=== PATIENT | female | born 1935 | race Caucasian/White ===

== ENCOUNTER 2018-01-13 11:21 | Emergency (ER) | payer MEDICARE, SELFPAY ==
[2018-01-13 11:21] VITALS: BP 157/80; PULSE 71; RESP 18; TEMP 36.4; O2SAT 96
--- NOTE | 2018-01-13 11:40 | CT_ITS ---
STUDY: CT ABDOMEN AND PELVIS WITHOUT CONTRAST REASON FOR EXAM: Female, 82 years old. Lower abdominal pain, history of cholecystectomy RADIATION DOSAGE (If Supplied By Facility): CTDIvol = ( 11.42 ) mGy, DLP = ( 590.81 ) mGycm TECHNIQUE: Transaxial images were obtained from the dome of the diaphragm to the symphysis pubis without oral contrast, and without intravenous contrast. Sagittal and coronal images were reconstructed. Individualized dose optimization techniques were used for this CT. COMPARISON: 2016 FINDINGS: There are chronic interstitial fibrotic changes of the lung bases. The visualized portions of the heart are within normal limits. Normal liver. There are surgical clips in the gallbladder fossa consistent with a prior cholecystectomy. Normal spleen. Normal pancreas. Normal bilateral adrenal glands. Normal right kidney. Normal left kidney. Normal visualized stomach. Normal small intestine. There are multiple colonic diverticula consistent with diverticulosis. There is subtle nonspecific submucosal thickening in the distal descending and sigmoid colon with perisigmoidal inflammatory stranding suggesting acute diverticulitis. An underlying lesion the sigmoid cannot be excluded and further evaluation with colonoscopy is recommended once the acute inflammation has resolved unless recently performed. Appendix best seen on coronal recon image 53 Normal abdominal aorta. Normal inferior vena cava. Normal retroperitoneum. Normal urinary bladder. There is a left-sided inguinal hernia containing adipose tissue. There are diffuse degenerative changes of the visualized lumbar spine, and pelvis. CT/Abdomen/Pelvis without Cont IMPRESSION: Scattered clonic diverticulosis. There is thickening of the distal descending and sigmoid colon with perisigmoidal inflammatory stranding suggesting acute diverticulitis. No perforation or abscess. However an underlying lesion cannot be excluded. No suspicious solid organ abnormality, previous cholecystectomy Prominent fat-containing left inguinal hernia Degenerative bony changes Electronically Signed: Carmelo Boswell MD at 13:06 EDT , Service support ,
--- NOTE | 2018-01-13 11:40 | RAD_ITS ---
STUDY: X-RAY CHEST REASON FOR EXAM: Female, 82 years old. Right-sided chest pain since last night TECHNIQUE: Single AP portable view of the chest. COMPARISON: 09/10/2015 FINDINGS: There are interstitial fibrotic changes of the lungs. There is no demonstrated pleural abnormality. Normal size heart. Normal mediastinum and caty. Normal visualized pulmonary arteries. Normal visualized aortic arch and descending thoracic aorta. Normal visualized thoracic spine. Normal visualized ribs, clavicles, and shoulders. There is no demonstrated abnormality of the visualized soft tissue structures of the upper abdomen. RAD/Chest 1 View (Portable) IMPRESSION: Chronic interstitial changes, no superimposed acute pulmonary process Electronically Signed: Carmelo Boswell MD at 12:16 EDT , Service support ,
[2018-01-13] MEDS: Ondansetron 4 MG/2 ML Vial IV ×2 (12:12→13:37)
[2018-01-13] MEDS: 0.9% Normal Saline 1,000 ML 125 ML IV (12:12)
[2018-01-13 12:19] LABS: Absolute Lymphocyte Count 0.84 X10^3/ul (0.83-4.51); Absolute Neutrophil Count 11.2 X10^3/uL (2.0-7.7); Basophil# 0.01 X10^3/uL; Basophil% 0.1 % (0-1); Hematocrit 39.8 % (37-47); Hemoglobin 13.1 g/dl (12.0-15.0); Lymphocyte # 0.84 X10^3/ul (4.0); Lymphocyte % 6.5 % (19-41); Mean Corp Hgb Conc 32.9 g/gl (32-36); Mean Corpuscular Hgb 31.3 pg (27.0-32.0); Mean Corpuscular Volume 95.2 fL (81-99); Mean Platelet Vol. 9.8 fl (6.2-12.0); Monocyte# 0.95 X10^3/uL; Monocyte% 7.3 % (0-10); Neutrophil # 11.19 X10^3/uL (2.7-7.7); Platelet Count 238 K/mm3 (150-450); RBC Distribution Width SD 45.1 fl (35.1-43.9); Red Blood Count 4.18 M/mm3 (4.2-5.4)
[2018-01-13 12:20] LABS: POSITIVE COUNT NO; POSITIVE DIFFERENTIAL NO; POSITIVE MORPHOLOGY NO
--- NOTE | 2018-01-13 12:25 | ED.VISSUMM ---
- ER Visit Summary Date of Service: 01/13/18 Chief Complaint: Abdominal pain History of Present Illness: The patient is a [address] Lakhani. She reports that yesterday at bedtime she had the onset of lower abdominal pain that she describes as cramping. It was 9 out of 10 at worst. States it is now 1-2 out of 10 severity. It was worsened by nothing and relieved by nothing. She reports she has been very nauseated and had dry heaves. States that she had one loose stool and then 2 normal bowel movements there is been no blood in her stools. She does complain of subjective fever and chills. Patient reports that approximately 10 days ago she was working and the ground was wet. She questions whether or not she may have slipped. She has had pain in her right leg since that time. She had x-rays of her knee that were negative. However, she reports that since then she has been taking Advil and Tylenol. She states that she has been nauseated since that time. She also reports that she has had right lower chest pain since that time. States the pain only comes on when she lays down. There is no pain with exertion. She reports that the pain is 0 now, but 6 out of 10 when she lays down. She did not fall. Physical Examination: Vitals: Stable. Afebrile. General: Well-nourished and well-developed. Head: Normocephalic atraumatic. Neck: Supple, no lymphadenopathy. No JVD. Nontender. Cardiovascular: Regular rate and rhythm. 2 out of 6 systolic murmur. Respiratory: No respiratory distress. Clear to auscultation bilaterally. Chest is nontender. Abdominal: Soft, nontender, nondistended, normal bowel sounds. No guarding, rebound, or peritoneal signs. Back: Nontender. Extremities: Nontender, no edema. Skin: Normal color, no rash. Neurologic: Alert and oriented ?3. Cranial nerves II through XII are intact. Normal strength and sensation. Psych: Normal affect. Test Results: CBC is more for a white count of 13.0 with 86 segmented neutrophils and 7 lymphocytes. BMP is marked for glucose of 115 and BUN of 21. LFTs are normal. Lipase is normal. Chest x-ray shows chronic changes. Urinalysis is negative. Clinical Impression(s) from Imaging Studies Abdomen/Pelvis CT 01/13/18 11:40 IMPRESSION: Scattered clonic diverticulosis. There is thickening of the distal descending and sigmoid colon with perisigmoidal inflammatory stranding suggesting acute diverticulitis. No perforation or abscess. However an underlying lesion cannot be excluded. No suspicious solid organ abnormality, previous cholecystectomy Prominent fat-containing left inguinal hernia Degenerative bony changes Electronically Signed: Carmelo Boswell MD at 13:06 EDT , Service support , Emergency Department Course and Treatment: Patient had an IV placed. She was given Zofran IV and is resting comfortably. The patient was given a dose of Cipro and Flagyl IV. Treatment Plan: Discharge with Cipro, Flagyl, [place], and Colace. Instructed follow-up Dr. Lakhani in 5-7 days for another exam. She was also given the phone number for Dr. Allison to follow-up with after treatment of her diverticulitis that she is never had a colonoscopy. Return to the emergency department for any worsening symptoms. Disposition: To home in improved and stable condition. Impression: 1. Diverticulitis. This note was generated with i[employer] dictation software. It may contain incorrect words, spelling, and punctuation that were not noted in review of the chart prior to signing ED Disposition - Plan for ED Patient: Chief Complaint: Weakness Instructions: ED Diverticulitis Prescriptions: Oxycodone HCl/Acetaminophen [Percocet 5/325] 1 tablet PO Q6H PRN PRN 3 Days #12 tablet PRN Reason: Pain Docusate Sodium [Colace] 100 mg PO DAILY #20 capsule Ciprofloxacin [Cipro] 500 mg PO BID #20 tablet Metronidazole [Flagyl] 500 mg PO Q6H #40 tablet Referrals: Phu Lakhani DO [Primary Care Provider] - 5-7 Days Maldonado Fish MD [STAFF PHYSICIAN] -
[2018-01-13 12:27] LABS: AST(SGOT) 19 U/L (15-37); Alanine Aminotransfer ALT/SGPT 20 U/L (13-56); Albumin, Serum 3.5 g/dL (3.2-5.0); Alkaline Phosphatase 86 U/L (45-117); Anion Gap 8 (5-15); BUN 21 mg/dL (7-18); Bilirubin, Direct 0.17 mg/dL (0.00-0.30); Chloride 102 mmol/L (98-107); EST Glomerular Filtration Rate 56 mL/min (>60); Est Glom Filt Rate - Afr Amer 68 mL/min (>60); Estimated Creatinine Clearance 66.76 ml/min; Globulin 3.9 g/dL (2.2-4.2); Glucose 115 mg/dL (74-106); Lipase 175 U/L (73-393); Potassium 4.2 mmol/L (3.5-5.1); Protein, Total 7.4 g/dL (6.4-8.2); Sodium Level 137 mmol/L (136-145)
[2018-01-13 13:47] LABS: Bacteria 0 SEEN /hpf (None Seen); Mucous, Urine 0 SEEN /hpf (<or=2+); Red Blood Cells-Urine 0 SEEN /hpf (0-5); White Blood Cells 0 SEEN /hpf (0-5)
[2018-01-13 13:57] LABS: Color, Urine Yellow (Yellow); Glucose, Dipstick Normal (Normal); Ketone-Dipstick 5 mg/dl (Negative); Leukocyte Esterase-Dipstick Negative /ul (Negative); Nitrite-Dipstick Negative (Negative); Occult Blood-Urine 10 /ul (Negative); Protein-Dipstick Negative (Negative); Urine Bilirubin Dipstick Negative (Negative); Urine Clarity Clear (Clear); Urine Urobilinogen Normal (Normal)
[2018-01-13 14:03] LABS: Squamous Epithelial Cells - UA 0-5 SEEN /hpf (5-10)
[2018-01-13] MEDS: Ciprofloxacin 400 MG/200 ML BAG 200 MG IV (14:12)
[2018-01-13] MEDS: Morphine 4 MG/ML Syringe IV (14:12)
[2018-01-13 14:15] VITALS: BP 141/66; PULSE 63; RESP 14; O2SAT 98
[2018-01-13 16:12] VITALS: BP 150/86; PULSE 58; RESP 16; O2SAT 95
[2018-01-13 17:33] VITALS: BP 119/72; PULSE 66; RESP 14; O2SAT 96
== END 2018-01-13 17:34 | disposition home or self-care (01) ==
PROVIDERS: Emergency Provider Emergency Medicine; Family Provider Student in an Organized Health Care Education/Training Program; PCP Student in an Organized Health Care Education/Training Program
DX: K57.32 Diverticulitis of large intestine without perforation or abscess without bleeding (principal); I10 Essential (primary) hypertension; Z79.82 Long term (current) use of aspirin; Z79.899 Other long term (current) drug therapy
CPT/HCPCS: 71045; 74176; 80048; 80076; 81001; 83690; 85025; 96365; 96367; 96375; 96376; 99284; J7030; A4216; J0744; J2405

== ENCOUNTER 2018-01-25 09:01 | Emergency (ER) | payer MEDICARE, SELFPAY ==
[2018-01-25 09:04] VITALS: BP 166/83; PULSE 74; RESP 17; TEMP 37.1; O2SAT 94; BMI 28.2
--- NOTE | 2018-01-25 09:22 | VDLE_ITS ---
Reason For Study: pain RIGHT LEFT GSV is normal. CFV is compressible, spontaneous, phasic, CFV is compressible, spontaneous, phasic, competent, and demonstrates normal competent and demonstrates normal augmentation. augmentation. FV is compressible, spontaneous, phasic, competent and demonstrates normal augmentation. POP V is compressible, spontaneous, phasic, competent and demonstrates normal augmentation. T/P Trunk is compressible. PTV is compressible. RT PerV is compressible. Procedure Exam performed portable in ED. The exam was diagnostic. A preliminary report was called and/or faxed to Dr. San. Interpretation Summary There is no evidence of right lower extremity deep vein thrombosis. Right greater saphenous vein appears patent and compressible segmentally. Normal flow patterns left common femoral vein. Ordering Physician: Stephanie Payne Performed By: William Patterson RVT
[2018-01-25] MEDS: Morphine 4 MG/ML Syringe IM (09:39)
[2018-01-25] MEDS: proMETHazine 25 MG/ML Syringe 12.5 MG IM (09:39)
--- NOTE | 2018-01-25 10:30 | ED.DCSUM_ITS ---
- ER Visit Summary Date of Service: 01/25/18 Chief Complaint: [Right knee pain] History of Present Illness: The patient is a 82 F [presents the emergency department complaint of right knee pain ?2-3 weeks. Patient states that she had an episode at work 2-3 weeks ago where she picked up at tray full of glasses of water which then spilled causing her to twist her right knee. Patient had pain immediately and continues to have pain since that time. 3 days after the injury patient was seen at urgent care and had x-rays of her right knee that did not show any fracture but just some arthritic changes. Patient has been bearing weight and has gone to a couple of days of work since the injury. Patient has an appointment with orthopedics next week. The pain is become more severe over the last couple of days and she feels like the entire leg is more swollen. Patient's daughter states that patient's been less active and been sitting around more due to the pain in the right knee. Patient denies any chest pain or shortness of breath.] Patient states that she does not want to file workman's comp. Physical Examination: [HEENT-PERRLA, EOMI. Cranial nerves II through XII grossly intact. TMs clear. Mucous membranes moist. No adenopathy. Cardiovascular-regular rate and rhythm without murmur or ectopy Lungs-clear to auscultation, chest wall stable without crepitus or subcu emphysema Abdomen-normoactive bowel sounds, soft, nontender, no rebound or rigidity, no peritoneal signs. Extremities-intact ?4, normal range of motion, normal pulses, atraumatic]. Right knee-patient has good range of motion flexion and extension. No significant effusion noted. Ligamentously stable on exam however she does have pain with varus and valgus stress of the knee without any significant laxity noted. She is neurovascular intact distally. No ropes or cords palpated. Test Results: [Venous duplex of the right lower extremity obtained was negative for DVT] Emergency Department Course and Treatment: [At this point I do not feel any further imaging is indicated. Patient was given a shot of morphine and Phenergan in the emergency department. Patient had good pain control.] Treatment Plan: [Patient will be given a prescription for Percocet and Phenergan and patient advised to follow-up with her orthopedic surgeon in 1 week.] I suspect patient may have internal derangement of the right knee and may require further imaging such as possibly MRI to evaluate further. Disposition: [Discharged home in stable condition.] Impression: [Right knee sprain-possible internal derangement.] This note was generated with [employer] dictation software. It may contain incorrect words, spelling, and punctuation that were not noted in review of the chart prior to signing ED Disposition - Plan for ED Patient: Chief Complaint: Lower Extremity Injury Referrals: Phu Lakhani DO [Primary Care Provider] -
--- NOTE | 2018-01-25 10:30 | ED.DEP ---
ED Disposition - Plan for ED Patient: Chief Complaint: Lower Extremity Injury Instructions: ED Meniscal Injury Knee Poss, ED Sprain Knee Prescriptions: Oxycodone HCl/Acetaminophen [Percocet 5/325] 1 tab PO Q6H PRN PRN 5 Days #20 tab PRN Reason: Pain proMETHazine tablet [Phenergan] 25 mg PO Q6H PRN PRN #10 tab PRN Reason: Nausea Referrals: Phu Lakhani DO [Primary Care Provider] - Diogenes Stokes MD [STAFF PHYSICIAN] - 1 Week
[2018-01-25 10:52] VITALS: BP 139/66; PULSE 64; RESP 18; O2SAT 96
== END 2018-01-25 11:06 | disposition home or self-care (01) ==
PROVIDERS: Emergency Provider Emergency Medicine; Family Provider Student in an Organized Health Care Education/Training Program; PCP Student in an Organized Health Care Education/Training Program
DX: S83.91XA Sprain of unspecified site of right knee, initial encounter (principal); X50.1XXA Overexertion from prolonged static or awkward postures, initial encounter; Y93.89 Activity, other specified; Y92.9 Unspecified place or not applicable; Y99.0 Civilian activity done for income or pay; M79.89 Other specified soft tissue disorders; I10 Essential (primary) hypertension; E78.00 Pure hypercholesterolemia, unspecified; Z79.82 Long term (current) use of aspirin; Z79.899 Other long term (current) drug therapy
CPT/HCPCS: 93971; 96372; 99282

== ENCOUNTER 2023-01-12 18:23 | Emergency (ER) | payer MEDICARE, SELFPAY ==
[2023-01-12 18:24] VITALS: BP 186/111; PULSE 95; RESP 14; TEMP 35.7; O2SAT 99; BMI 27.3
--- NOTE | 2023-01-12 18:55 | CT_ITS ---
STUDY: CT BRAIN WITHOUT CONTRAST REASON FOR EXAM: Female, 87 years old. Headache Individualized dose optimization techniques were used for this CT. TECHNIQUE: Transaxial CT imaging of the brain was performed without administration of intravenous contrast material. COMPARISON: 08.09.16 FINDINGS: There are calcifications around the carotid artery. These are noted in the cavernous carotid arteries. Normal calvarium. Normal soft tissues. There is mild cerebral atrophy with widening of the extra-axial spaces and ventricular dilatation. There are areas of decreased attenuation within the white matter tracts of the supratentorial brain, consistent with microvascular disease changes. Normal basal ganglia and thalami. Normal brainstem. There is mild cerebellar atrophy. There is no intracranial hemorrhage. There are no findings of an acute ischemic infarction. Degenerative changes of the mandibular condyles. ASPECTS Score for Acute Strokes: 10 CT/Brain/Head without Contrast IMPRESSION: There are no acute findings. Chronic involutional changes of the brain. Electronically Signed: Jaxon Webb MD at 20:07 EDT ,
[2023-01-12] MEDS: Ondansetron 4 MG/2 ML Vial IV (19:12)
[2023-01-12 19:15] LABS: Absolute Lymphocyte Count 2.81 X10^3/uL (0.83-4.51); Absolute Neutrophil Count 2.8 X10^3/uL (2.0-7.7); Basophil# 0.04 X10^3/uL; Basophil% 0.6 % (0-1); Eosinophil# 0.12 X10^3/uL; Eosinophils% 1.9 % (0-5); Hematocrit 39.8 % (37-47); Hemoglobin 13.3 g/dL (12.0-15.0); Lymphocyte # 2.81 X10^3/ul (0.83-4.51); Lymphocyte % 43.4 % (19-41); Mean Corp Hgb Conc 33.4 g/dL (32-36); Mean Corpuscular Hgb 32.2 pg (27.0-32.0); Mean Corpuscular Volume 96.4 fL (81-99); Mean Platelet Vol. 9.8 fl (6.2-12.0); Monocyte# 0.69 X10^3/uL; Monocyte% 10.6 % (0-10); NRBC Flagged by Analyzer 0 % (0-5); Neutrophil % 43.2 % (47-70); Platelet Count 245 K/mm3 (150-450); RBC Distribution Width CV 12.5 % (11.6-14.6); RBC Distribution Width SD 44.7 fl (35.1-43.9); Red Blood Count 4.13 M/mm3 (4.2-5.4); White Blood Count 6.5 K/mm3 (4.4-11.0)
--- NOTE | 2023-01-12 19:28 | RAD_ITS ---
STUDY: XR Chest 1 View 01/12/2023 7:30 PM REASON FOR EXAM: Female, 87 years old. Hypertension COMPARISON: 01.13.18 TECHNIQUE: XR Chest 1 View FINDINGS: There is no demonstrated pleural abnormality. Normal heart size. Normal mediastinum. Normal caty. Prominent appearing increased interstitial lung markings. Normal visualized pulmonary arteries. There is atherosclerotic calcification of the aortic arch with tortuosity. There are diffuse degenerative changes of the visualized thoracic spine. There is degenerative osteoarthritis of the bilateral shoulders. There is no demonstrated abnormality of the visualized soft tissue structures of the upper abdomen. RAD/Chest 1 View (Portable) IMPRESSION: There are no acute findings. Electronically Signed: Jaxon Webb MD at 19:45 EDT ,
[2023-01-12 19:35] LABS: Anion Gap 6 (5-15); BUN 19 mg/dL (7-18); BUN/Creat Ratio 16.7 RATIO (10-20); Calcium,Total 9.4 mg/dL (8.5-10.1); Chloride 100 mmol/L (98-107); Creatinine, Serum 1.14 mg/dL (0.55-1.02); EST Glomerular Filtration Rate 48 mL/min (>60); Est Glom Filt Rate - Afr Amer 58 mL/min (>60); Estimated Creatinine Clearance 32.55 ml/min; Glucose 110 mg/dL (74-106); Potassium 4.3 mmol/L (3.5-5.1); Sodium Level 131 mmol/L (136-145); Troponin-I HS 7 pg/mL (3.0-54.0)
--- NOTE | 2023-01-12 19:35 | EX.ED.DYSGE1 ---
HPI History of Present Illness Chief Complaint: Hypertension Informant: patient Onset/Context/Timing Onset: Today Context: Gradual Onset Timing: Continuous Quality: Dull Location: Frontal Worsened by: Nothing Relieved by: Nothing Narrative Narrative: Patient presents with elevated blood pressure that was noticed today. Patient states she had an appointment with her front office administrator today. Patient states her blood pressure was noted to be elevated at that time. Patient was instructed to go home and rest. Patient was instructed to repeat her blood pressure. Family states the blood pressure was still elevated at that time. Family states they called the after-hours nurse and was told to come to the emergency department. Patient admits to a headache. Patient states it is over the frontal area. Patient describes it as dull. Patient states nothing makes it better and nothing makes it worse. Patient admits to some nausea and dry heaves. Patient denies any fevers or chills. Patient denies any visual changes. [facility] Medical History Hypertension Neck fracture Home Medications lorazepam 0.5 mg tablet 0.5 mg PO QHS PRN PRN Anxiety 05/09/15 [History Last Taken 01/25/17] losartan 25 mg tablet 25 mg PO QHS BLOOD PRESSURE 05/09/15 [History Last Taken 01/25/17] vitamins A,C,H-pdkd-rzvyab 4,296 mcg-226 mg-90 mg capsule (PreserVision AREDS) 2 ea PO QHS SUPPLEMENT 05/09/15 [History Last Taken 01/25/17] Probiotic 1 tab PO QHS SUPPLEMENT 01/26/17 [History Last Taken 01/25/17] aspirin 81 mg tablet,delayed release (Torsten Low Dose Aspirin) 81 mg PO QHS HEART HEALTH 01/26/17 [History Last Taken 01/25/17] gsmyixme-zgal-vkoy 8 mg-folic 400 mcg-K 50 mcg-lutein 300 mcg tablet (Centrum Silver Women) 1 ea PO QHS 01/26/17 [History Last Taken 01/25/17] pravastatin 10 mg tablet 10 mg PO QHS CHOLESTEROL 01/26/17 [History Last Taken 01/25/17] acetaminophen 325 mg tablet (Tylenol) 650 mg (2 x 325 mg) PO Q6H PRN PRN pain/fever 01/29/17 [Rx Last Taken Unknown] ciprofloxacin HCl 250 mg tablet 250 mg PO BID ##14 01/29/17 [Rx Last Taken Unknown] docusate sodium 100 mg capsule (DOK) 100 mg PO DAILY ##20 01/13/18 [Rx Last Taken Unknown] metronidazole 500 mg tablet 500 mg PO Q6H #40 tabs 01/13/18 [Rx Last Taken Unknown] oxycodone-acetaminophen 5 mg-325 mg tablet 1 tab PO Q6H PRN PRN Pain 3 days ##12 01/13/18 [Rx Last Taken Unknown] oxycodone-acetaminophen 5 mg-325 mg tablet 1 tab PO Q6H PRN PRN Pain 5 days #20 tabs 01/25/18 [Rx Last Taken Unknown] promethazine 25 mg tablet 25 mg PO Q6H PRN PRN Nausea #10 tabs 01/25/18 [Rx Last Taken Unknown] ciprofloxacin HCl 500 mg tablet 500 mg PO BID ##6 01/12/23 [Rx Last Taken Unknown] ondansetron 4 mg disintegrating tablet 4 mg PO Q8H PRN PRN Nausea #10 tabs 01/12/23 [Rx Last Taken Unknown] Allergy/AdvReac Type Severity Reaction Status Date / Time ALEJANDRO Inhibitors AdvReac Other Verified 01/12/23 18:26 hydrocodone bitartrate AdvReac Nausea Verified 01/12/23 18:26 [From Vicodin] metronidazole [From Flagyl] AdvReac Nausea Verified 01/12/23 18:26 nitrofurantoin AdvReac Nausea Verified 01/12/23 18:26 [From Macrobid] Surgical History History of hernia repair History of tonsillectomy and adenoidectomy Hx of cholecystectomy Social History Smoking Status: Never smoker ROS ROS ED Constitutional Constitutional ED: Denies chills or fever(s) Eyes Eyes: Denies blurry vision or change in vision ENT ENT ED: Denies rhinorrhea or sore throat Cardiovascular Cardiovascular: Denies chest pain or palpitations Respiratory/Chest Respiratory/Chest: Denies cough or dyspnea Gastrointestinal Gastrointestinal: Reports nausea; Denies vomiting Genitourinary Genitourinary ED: Denies dysuria or hematuria Musculoskeletal Musculoskeletal: Denies back pain or neck pain Integumentary Denies abscess or rash Neurologic Neurologic: Reports headache(s); Denies weakness Allergic/Immunologic Allergic/Immunologic ED: Denies mouth swelling or urticaria EXAM Physical Exam Const Vital Signs: 01/12/23 18:24 01/12/23 19:19 Temperature 96.2 F L Temperature Source Temporal Pulse Rate 95 Respiratory Rate 14 Respiratory Effort Normal Respiratory Pattern Normal Blood Pressure 186/111 H Blood Pressure Mean 136 Pulse Ox 99 Oxygen Delivery Method Room Air Positive well nourished and well developed General Appearance ED: well developed and NAD HEENT Reports moist mucous membranes Neck supple and no JVD Resp normal respiratory effort and clear to auscultation bilaterally Cardio regular rate, regular rhythm and no murmurs GI normal to inspection, nondistended, normoactive bowel sounds and non-tender Palpation: soft Extremity normal to inspection General Extremety ED: Negative for edema or tenderness General Extremity: Negative for edema Neuro oriented x3, CN's II-XII intact bilaterally and no sensory deficits noted Sensorium / Orientation: alert Motor Exam: strength 5/5 throughout Psych mental status grossly normal Skin no rashes or lesions noted MDM MDM MDM Narrative Medical decision making narrative: Differential diagnosis includes intracranial bleeding, increased intracranial pressure, hypertensive urgency, uncontrolled hypertension, cardiac dysrhythmia, cardiac ischemia, electrolyte abnormality, and acute kidney injury. EKG will be obtained to assess for cardiac dysrhythmia and cardiac ischemia. CT scan of the brain will be obtained to assess for intracranial bleeding and intracranial pressure. CBC will be obtained to assess for leukocytosis and anemia. Basic metabolic profile will be obtained to assess for electrolyte abnormality and renal function. High-sensitivity troponin will be obtained to assess for cardiac ischemia. Urinalysis will be obtained to assess for urinary tract infection. Chest x-ray will be obtained to assess for pneumonia and widened mediastinum. History & Record Review Discussion w/independent historian: Patient and Family Additional record(s) reviewed:: Prior labs Lab Data Attestation: I reviewed the patient's lab results. Lab results narrative: CBC was reviewed and was within normal limits. Basic metabolic profile was reviewed. Sodium was slightly low at 131. BUN was 19 and creatinine was 1.14. High-sensitivity troponin was reviewed and was normal at 7. Urinalysis was reviewed. Leukocyte esterase was 500 with 10-25 white blood cells and 2+ bacteria. There were positive nitrites. Labs: Laboratory Results - last 24 hr 01/12/23 01/12/23 19:04 20:00 WBC 6.5 RBC 4.13 L Hgb 13.3 Hct 39.8 MCV 96.4 MCH 32.2 H MCHC 33.4 RDW Std Deviation 44.7 H RDW Coeff of Alfie 12.5 Plt Count 245 MPV 9.8 Immature Gran % (Auto) 0.300 Neut % (Auto) 43.2 L Lymph % (Auto) 43.[address] [place] % (Auto) 10.6 H Eos % (Auto) 1.9 Baso % (Auto) 0.6 Absolute Neuts (auto) 2.8 Absolute Lymphs (auto) 2.81 Nucleated RBC % 0 Sodium 131 L Potassium 4.3 Chloride 100 Carbon Dioxide 25.0 Anion Gap 6 BUN 19 H Creatinine 1.14 H Estim Creat Clear Calc 32.55 Est GFR (MDRD) Af Amer 58 L Est GFR (MDRD) Non-Af 48 L BUN/Creatinine Ratio 16.7 Glucose 110 H Calcium 9.4 Troponin I High Sens 7 Urine Color Yellow Urine Clarity Sl. Cloudy Urine pH 6.0 Ur Specific [place] 1.015 Urine Protein Negative Urine Glucose (UA) Normal Urine Ketones Negative Urine Occult Blood 10 H Urine Nitrite Positive H Urine Bilirubin Negative Urine Urobilinogen Normal Ur Leukocyte Esterase 500 H Urine RBC 0-5 SEEN Urine WBC 10-25 SEEN Ur Squamous Epith Cells 0 SEEN Urine Bacteria 2+ Urine Mucus 0 SEEN Radiography Chest X-Ray - ED: 1 View, Read by ED Physician, Read by Radiologist and No Acute Disease Diagnostic Testing: Clinical Impression(s) from Imaging Studies Brain CT 01/12/23 18:55 IMPRESSION: There are no acute findings. Chronic involutional changes of the brain. Electronically Signed: Jaxon Webb MD at 20:07 EDT , Chest X-Ray 01/12/23 19:28 IMPRESSION: There are no acute findings. Electronically Signed: Jaxon Webb MD at 19:45 EDT , Portable 1 view chest x-ray was obtained. On my independent interpretation, lung patel are clear. There is normal cardiac silhouette. Bony thorax is normal. There is no acute process noted. Radiologist also interpreted the x-ray and agrees. CT scan of the brain was obtained. There is no acute intracranial abnormality. This was interpreted by the radiologist and was also independently reviewed by myself. EKG Initial EKG: Attestation: I personally reviewed and interpreted this EKG as follows: Interpretation: Sinus Rhythm (78) and No Acute Injury Pattern Comments: EKG was obtained. On my independent interpretation, it showed a normal sinus rhythm with a rate of 78. CO interval, QRS interval, and QTc intervals were all normal. There is left axis deviation at -45. There are no acute ST or T wave changes. Prior EKG tracings: available for review Prior: Unchanged (05/09/2015) Treatment and Re-Evaluation :: Patient was given a dose of Zofran here. Patient is feeling better on reevaluation. Patient was advised of her findings. Urine culture was ordered. Patient was given a dose of Cipro here. Patient was given a prescription for Cipro. Patient was also given a prescription for Zofran. Patient was instructed to drink plenty of fluids. Patient was instructed to follow-up with her primary care physician in 5 to 7 days. Patient understood and was agreeable with the plan. All questions were answered. Discharge Plan Triage Chief Complaint: Hypertension Other Complaint: Headache ED Provider: Jovi Bradshaw Dx/Rx/DC Orders Clinical Impression: UTI (urinary tract infection) with pyuria, HTN (hypertension) Instructions: ED Hypertension, Established, ED Cystitis Female Adult Prescriptions: New ondansetron [ondansetron] 4 mg tablet,disintegrating 4 mg PO Q8H PRN PRN (Reason: Nausea) Qty: 10 0RF Continued ciprofloxacin HCl 500 MG tablet 500 mg PO BID Qty: 6 0RF No Action lorazepam 0.5 MG tablet 0.5 mg PO QHS PRN PRN (Reason: Anxiety) Patient Comments: nerve pill losartan 25 MG tablet 25 mg PO QHS Patient Comments: blood pressure you have not had any of this today. vitamins A,C,V-fdai-ixfbzv [PreserVision AREDS] 1 EACH capsule 2 ea PO QHS Patient Comments: suppliment you have not had any of this today aspirin [Torsten Low Dose Aspirin] 81 MG tablet,delayed release (DR/EC) 81 mg PO QHS pravastatin 10 MG tablet 10 mg PO QHS Probiotic 1 TAB 1 tab PO QHS pmjfsksd-msd-hamb-FA-vit K-lut [Centrum Silver Women] 1 EACH tablet 1 ea PO QHS acetaminophen [Tylenol] 325 MG tablet 650 mg PO Q6H PRN PRN (Reason: pain/fever) 0RF ciprofloxacin HCl 250 MG tablet 250 mg PO BID Qty: 14 0RF metronidazole 500 MG tablet 500 mg PO Q6H Qty: 40 0RF docusate sodium [DOK] 100 MG capsule 100 mg PO DAILY Qty: 20 0RF oxycodone-acetaminophen 1 TABLET tablet 1 tab PO Q6H PRN PRN (Reason: Pain) 3 Days Qty: 12 0RF oxycodone-acetaminophen 1 TABLET tablet 1 tab PO Q6H PRN PRN (Reason: Pain) 5 Days Qty: 20 0RF promethazine 25 MG tablet 25 mg PO Q6H PRN PRN (Reason: Nausea) Qty: 10 0RF Primary Care Provider: Phu Lakhani Referrals: Phu Lakhani DO [Primary Care Provider] - 5-7 Days Disposition Disposition: Home, Self Care
[2023-01-12 20:04] LABS: Mucous, Urine 0 SEEN /hpf (<or=2+); Squamous Epithelial Cells - UA 0 SEEN /hpf (5-10)
[2023-01-12 20:06] LABS: Color, Urine Yellow (Yellow); Glucose, Dipstick Normal (Normal); Ketone-Dipstick Negative (Negative); Leukocyte Esterase-Dipstick 500 /ul (Negative); Nitrite-Dipstick Positive (Negative); Occult Blood-Urine 10 /ul (Negative); Protein-Dipstick Negative (Negative); Specific Gravity, Urine 1.015 (1.002-1.030); Urine Bilirubin Dipstick Negative (Negative); Urine Clarity Sl. Cloudy (Clear); Urine Urobilinogen Normal (Normal)
[2023-01-12 20:17] LABS: Bacteria 2+ /hpf (None Seen); Red Blood Cells-Urine 0-5 SEEN /hpf (0-5); White Blood Cells 10-25 SEEN /hpf (0-5)
[2023-01-12] MEDS: Ciprofloxacin 500 MG Tablet PO (21:27)
== END 2023-01-12 21:30 | disposition home or self-care (01) ==
PROVIDERS: Emergency Provider Emergency Medicine; PCP Student in an Organized Health Care Education/Training Program; Visit Provider Emergency Medicine
DX: N39.0 Urinary tract infection, site not specified (principal); I10 Essential (primary) hypertension
CPT/HCPCS: 70450; 71045; 80048; 81001; 84484; 85025; 87077; 87086; 87088; 87186; 93005; 96374; 99285; A4216; J2405

== ENCOUNTER 2023-03-18 18:16 | Observation (INO) | payer MEDICARE, SELFPAY ==
[2023-03-18 18:17] VITALS: BP 138/81; PULSE 81; RESP 16; TEMP 36.3; O2SAT 95
[2023-03-18 19:25] LABS: Absolute Lymphocyte Count 1.83 X10^3/uL (0.83-4.51); Absolute Neutrophil Count 8.2 X10^3/uL (2.0-7.7); Basophil# 0.04 X10^3/uL; Basophil% 0.4 % (0-1); Eosinophil# 0.07 X10^3/uL; Eosinophils% 0.6 % (0-5); Hematocrit 39.8 % (37-47); Hemoglobin 12.9 g/dL (12.0-15.0); Lymphocyte # 1.83 X10^3/ul (0.83-4.51); Lymphocyte % 16.9 % (19-41); Mean Corp Hgb Conc 32.4 g/dL (32-36); Mean Corpuscular Hgb 31.2 pg (27.0-32.0); Mean Corpuscular Volume 96.1 fL (81-99); Mean Platelet Vol. 10.1 fl (6.2-12.0); Monocyte# 0.73 X10^3/uL; Monocyte% 6.7 % (0-10); NRBC Flagged by Analyzer 0 % (0-5); Neutrophil # 8.16 X10^3/uL (2.7-7.7); Neutrophil % 75.1 % (47-70); Platelet Count 242 K/mm3 (150-450); RBC Distribution Width CV 12.8 % (11.6-14.6); RBC Distribution Width SD 45.3 fl (35.1-43.9); Red Blood Count 4.14 M/mm3 (4.2-5.4); White Blood Count 10.9 K/mm3 (4.4-11.0)
[2023-03-18 19:39] LABS: Mucous, Urine 0 SEEN /hpf (<or=2+); Squamous Epithelial Cells - UA 0 SEEN /hpf (5-10)
[2023-03-18 19:47] LABS: Color, Urine Yellow (Yellow); Glucose, Dipstick Normal (Normal); Ketone-Dipstick Negative (Negative); Leukocyte Esterase-Dipstick 500 /ul (Negative); Nitrite-Dipstick Positive (Negative); Occult Blood-Urine 150 /ul (Negative); Protein-Dipstick 100 mg/dl (Negative); Urine Bilirubin Dipstick Negative (Negative); Urine Clarity Cloudy (Clear); Urine Urobilinogen Normal (Normal)
[2023-03-18 19:50] LABS: ALB/GLOB Ratio 0.9 RATIO (0.9-2.4); AST(SGOT) 19 U/L (15-37); Alanine Aminotransfer ALT/SGPT 20 U/L (13-56); Albumin, Serum 3.1 g/dL (3.2-5.0); Alkaline Phosphatase 98 U/L (45-117); Anion Gap 6 (5-15); BUN 20 mg/dL (7-18); BUN/Creat Ratio 19.8 RATIO (10-20); Calcium,Total 9.4 mg/dL (8.5-10.1); Chloride 102 mmol/L (98-107); Creatinine, Serum 1.01 mg/dL (0.55-1.02); EST Glomerular Filtration Rate 55 mL/min (>60); Est Glom Filt Rate - Afr Amer 67 mL/min (>60); Globulin 3.5 g/dL (2.2-4.2); Glucose 108 mg/dL (74-106); Potassium 4.1 mmol/L (3.5-5.1); Protein, Total 6.6 g/dL (6.4-8.2); Sodium Level 134 mmol/L (136-145)
--- NOTE | 2023-03-18 20:03 | EDS_ITS ---
HPI HPI - Female History of Present Illness Chief Complaint: Complaint Narrative Narrative: Patient is an 87-year-old female with history of recurrent UTIs, pyelonephritis and active bacteremia due to E. coli presenting with continued UTI symptoms. Patient has been on multiple course of antibiotics including ciprofloxacin and Keflex per her daughter. Patient finishing her back today and then started developing fever and urinary symptoms. She is also complained of nausea. UTIs appears to be managed by her PCP, Dr. Lakhani. Patient does not think she sees a urologist but she is not sure. PFSH PFS Medical History Hypertension Neck fracture Home Medications lorazepam 0.5 mg tablet 0.5 mg PO QHS PRN PRN Anxiety 05/09/15 [History Last Taken 03/17/23] losartan 25 mg tablet 100 mg PO QHS BLOOD PRESSURE 05/09/15 [History Last Taken 03/18/23] vitamins A,C,E-oqxh-yrpcge 4,296 mcg-226 mg-90 mg capsule (PreserVision AREDS) 2 ea PO QHS SUPPLEMENT 05/09/15 [History Last Taken 03/18/23] Probiotic 1 tab PO QHS SUPPLEMENT 01/26/17 [History Last Taken 03/18/23] aspirin 81 mg tablet,delayed release (Torsten Low Dose Aspirin) 81 mg PO QHS HEART HEALTH 01/26/17 [History Last Taken 03/18/23] kddlihsn-ucla-xlkk 8 mg-folic 400 mcg-K 50 mcg-lutein 300 mcg tablet (Centrum Si [facility] Women) 1 ea PO QHS VITAMIN 01/26/17 [History Last Taken 03/18/23] acetaminophen 325 mg tablet (Tylenol) 650 mg (2 x 325 mg) PO Q6H PRN PRN pain/fever 01/29/17 [Rx Last Taken 03/18/23] ondansetron 4 mg disintegrating tablet 4 mg PO Q8H PRN PRN Nausea #10 tabs 01/12/23 [Rx Last Taken 03/17/23] amlodipine 5 mg tablet 5 mg PO DAILY BP 03/18/23 [History Last Taken 03/18/23] docusate sodium 100 mg capsule (DOK) 200 mg PO BID STOOL 03/18/23 [History Last Taken 03/18/23] famotidine 20 mg tablet (Pepcid AC) 20 mg PO DAILY STOMACH 03/18/23 [History Last Taken 03/18/23] tramadol 50 mg tablet 50 mg PO Q12H PRN pain 03/18/23 [History Last Taken 03/18/23] Allergy/AdvReac Type Severity Reaction Status Date / Time ALEJANDRO Inhibitors AdvReac Other Verified 03/18/23 18:17 hydrocodone bitartrate AdvReac Nausea Verified 03/18/23 18:17 [From Vicodin] metronidazole [From Flagyl] AdvReac Nausea Verified 03/18/23 18:17 nitrofurantoin AdvReac Nausea Verified 03/18/23 18:17 [From Macrobid] Surgical History History of hernia repair History of tonsillectomy and adenoidectomy Hx of cholecystectomy Social History Smoking Status: Never smoker ROS ROS ED Constitutional Constitutional ED: Reports chills, fever(s) and subjective Eyes Eyes: Denies blurry vision or change in vision ENT ENT ED: Denies rhinorrhea or sore throat Cardiovascular Cardiovascular: Denies chest pain Respiratory/Chest Respiratory/Chest: Denies cough Gastrointestinal Gastrointestinal: Reports nausea; Denies abdominal pain Genitourinary Genitourinary ED: Reports dysuria; Denies urinary frequency Musculoskeletal Musculoskeletal: Reports other Details: [place] neck collar on?patient reports history of C2 fracture has not healed from earlier in the year ; Denies arthralgias or myalgias Integumentary Denies rash Neurologic Neurologic: Reports weakness; Denies headache(s) Psychiatric Psychiatric: Denies anxiety EXAM Physical Exam Const Vital Signs: 03/18/23 18:17 Temperature 97.4 F L Temperature Source Temporal Pulse Rate 81 Respiratory Rate 16 Blood Pressure 138/81 H Blood Pressure Mean 100 Pulse Ox 95 Positive well nourished and well developed General Appearance ED: well developed and NAD HEENT Reports moist mucous membranes Eyes PERRL and EOMs intact bilaterally Neck supple Neck Narrative: Immobilized in c-collar Chest Wall inspection of chest normal Resp normal respiratory effort and clear to auscultation bilaterally Cardio regular rate and regular rhythm GI normal to inspection, nondistended, normoactive bowel sounds and soft to palpation Palpation: Negative for guarding Extremity normal to inspection and full ROM Neuro Sensorium / Orientation: alert, oriented to person and oriented to place Motor Exam: Negative for general weakness Psych mental status grossly normal Skin no rashes or lesions noted and no wounds MDM MDM MDM Narrative Medical decision making narrative: Patient is evaluated for low-grade fever of 99.9 per daughter after stopping 7 days of ciprofloxacin (started on March 10). She did take 2 ibuprofen and 1 Tylenol prior to arrival and is currently afebrile. She is having urinary symptoms today. Through clinic think her urine culture from 03/09 is reviewed which showed greater than 100,000 CFU per mL of E. coli that is pansensitive. Straight cath today is again highly consistent with UTI with greater than 100 white blood cells, 2+ bacteria and 500 leukocyte esterase and positive nitrites. Urine culture sent. She does not have a leukocytosis, fever, tachycardia or other SIRS criteria. Her kidney function is at her baseline and she has normal lactate. I do not think requires blood cultures. Is started on IV Rocephin. Due to her failure of outpatient antibiotics she will be admitted to the hospital for IV antibiotics. Case is discussed with hospitalist who is agreeable with plan of care. Patient and daughter also agreeable with this plan of care. Lab Data Attestation: I reviewed the patient's lab results. Labs: Laboratory Results - last 24 hr 03/18/23 03/18/23 03/18/23 19:15 19:25 20:10 WBC 10.9 RBC 4.14 L Hgb 12.9 Hct 39.8 MCV 96.1 MCH 31.2 MCHC 32.4 RDW Std Deviation 45.3 H RDW Coeff of Alfie 12.8 Plt Count 242 MPV 10.1 Immature Gran % (Auto) 0.300 Neut % (Auto) 75.1 H Lymph % (Auto) 16.9 L [place] % (Auto) 6.7 Eos % (Auto) 0.6 Baso % (Auto) 0.4 Absolute Neuts (auto) 8.2 H Absolute Lymphs (auto) 1.83 Nucleated RBC % 0 Sodium 134 L Potassium 4.1 Chloride 102 Carbon Dioxide 26.0 Anion Gap 6 BUN 20 H Creatinine 1.01 Est GFR (MDRD) Af Amer 67 Est GFR (MDRD) Non-Af 55 L BUN/Creatinine Ratio 19.8 Glucose 108 H Lactic Acid Cancelled 1.1 Calcium 9.4 Total Bilirubin 0.30 AST 19 ALT 20 Alkaline Phosphatase 98 Total Protein 6.6 Albumin 3.1 L Globulin 3.5 Albumin/Globulin Ratio 0.9 Urine Color Yellow Urine Clarity Cloudy Urine pH 6.0 Ur Specific [place] 1.020 Urine Protein 100 H Urine Glucose (UA) Normal Urine Ketones Negative Urine Occult Blood 150 H Urine Nitrite Positive H Urine Bilirubin Negative Urine Urobilinogen Normal Ur Leukocyte Esterase 500 H Urine RBC 5-10 SEEN Urine WBC >100 SEEN Ur Squamous Epith Cells 0 SEEN Urine Bacteria 2+ Urine Mucus 0 SEEN Discharge Plan Dx/Rx/DC Orders Clinical Impression: UTI (urinary tract infection) with pyuria, Failure of outpatient treatment Disposition Disposition: Acute Care [facility] Discharge Date/Time: 03/18/23 21:50
[2023-03-18 20:06] LABS: White Blood Cells >100 SEEN /hpf (0-5)
[2023-03-18 20:07] LABS: Bacteria 2+ /hpf (None Seen); Red Blood Cells-Urine 5-10 SEEN /hpf (0-5)
--- NOTE | 2023-03-18 20:38 | PCM.HP.STD ---
HPI - General General Date of Admission: 03/18/23 Date of Service: 03/18/23 Chief Complaint: Recurrent UTI HPI Narrative BALTAZAR GOLDBERG, is a 87 F with history of hypertension, anxiety, hyperlipidemia, chronic neck pain and multiple recent UTIs who presented to [facility] ED on 03/18/2023 with recurrent UTI symptoms. Patient seen at bedside in ED, daughter present. Patient lying comfortably in bed, conversing normally, no acute distress. Patient currently denies any acute pain or discomfort. Has not urinated since she got to the ED. States she had significant burning with urination earlier this evening, prompting her daughter to bring her to the ED given that she completed her second course of p.o. antibiotics for a UTI earlier today. Patient previously has not had significant burning with urination like this with UTIs. Her presentations for UTI are quite variable. She denies any suprapubic or abdominal pain. She denies any chest pain. Denies any lightheadedness or dizziness. No other acute concerns currently. Vitals in ED notable for mild hypertension with systolic BPs 130s to 140s, otherwise unremarkable. Labs notable for WBC count 10, normal BMP, normal LFTs. UA showed positive nitrites, 500 leukocyte esterase, greater than 100 white blood cells, 2+ bacteria. Renal/bladder ultrasound showed no evidence of hydronephrosis. [facility] Medical History Hypertension Neck fracture Home Medications lorazepam 0.5 mg tablet 0.5 mg PO QHS PRN PRN Anxiety 05/09/15 [History Last Taken 03/17/23] losartan 25 mg tablet 100 mg PO QHS BLOOD PRESSURE 05/09/15 [History Last Taken 03/18/23] vitamins A,C,I-bsim-dybipo 4,296 mcg-226 mg-90 mg capsule (PreserVision AREDS) 2 ea PO QHS SUPPLEMENT 05/09/15 [History Last Taken 03/18/23] Probiotic 1 tab PO QHS SUPPLEMENT 01/26/17 [History Last Taken 03/18/23] aspirin 81 mg tablet,delayed release (Torsten Low Dose Aspirin) 81 mg PO QHS HEART HEALTH 01/26/17 [History Last Taken 03/18/23] uoriangl-bjfg-dywx 8 mg-folic 400 mcg-K 50 mcg-lutein 300 mcg tablet (Centrum Silver Women) 1 ea PO QHS VITAMIN 01/26/17 [History Last Taken 03/18/23] acetaminophen 325 mg tablet (Tylenol) 650 mg (2 x 325 mg) PO Q6H PRN PRN pain/fever 01/29/17 [Rx Last Taken 03/18/23] ondansetron 4 mg disintegrating tablet 4 mg PO Q8H PRN PRN Nausea #10 tabs 01/12/23 [Rx Last Taken 03/17/23] amlodipine 5 mg tablet 5 mg PO DAILY BP 03/18/23 [History Last Taken 03/18/23] docusate sodium 100 mg capsule (DOK) 200 mg PO BID STOOL 03/18/23 [History Last Taken 03/18/23] famotidine 20 mg tablet (Pepcid AC) 20 mg PO DAILY STOMACH 03/18/23 [History Last Taken 03/18/23] tramadol 50 mg tablet 50 mg PO Q12H PRN pain 03/18/23 [History Last Taken 03/18/23] Allergy/AdvReac Type Severity Reaction Status Date / Time ALEJANDRO Inhibitors AdvReac Other Verified 03/18/23 18:17 hydrocodone bitartrate AdvReac Nausea Verified 03/18/23 18:17 [From Vicodin] metronidazole [From Flagyl] AdvReac Nausea Verified 03/18/23 18:17 nitrofurantoin AdvReac Nausea Verified 03/18/23 18:17 [From Macrobid] Surgical History History of hernia repair History of tonsillectomy and adenoidectomy Hx of cholecystectomy Social History Smoking Status: Never smoker ROS Constitutional Constitutional: Denies chills, fatigue, fever(s) or weakness Eyes Eyes: Denies change in vision Cardiovascular Cardiovascular: Denies chest pain, lightheadedness or palpitations Respiratory/Chest Respiratory/Chest: Denies cough, shortness of breath at rest or shortness of breath with exertion Gastrointestinal Gastrointestinal: Denies abdominal pain Genitourinary Genitourinary: Reports burning urination and dysuria; Denies hematuria, urinary frequency, urinary hesitancy or urinary urgency Vital Signs Vital Signs Vital Signs: 03/18/23 18:17 Temperature 97.4 F L Temperature Source Temporal Pulse Rate 81 Respiratory Rate 16 Blood Pressure 138/81 H Blood Pressure Mean 100 Pulse Ox 95 Physical Exam Const alert and oriented x3 Constitutional Narrative: Elderly female, lying comfortably in bed, conversing normally, no acute distress. General Appearance: cooperative and comfortable HEENT normocephalic, head/scalp atraumatic, hearing grossly normal bilaterally, nasal mucous membranes and turbinates normal and moist oral mucous membranes Eyes PERRL, EOMs intact bilaterally and conjunctivae normal Neck full ROM, no lymphadenopathy and supple Lymph Lymphatic: no lymphadenopathy noted Chest inspection of chest normal Resp normal respiratory effort, normal air movement, no use of accessory muscles and clear to auscultation bilaterally Cardio regular rate, regular rhythm, no murmurs and peripheral pulses 2+ throughout GI normal to inspection, nondistended, normoactive bowel sounds, soft to palpation, non-tender and non-distended Back/Spine normal ROM Extremity normal to inspection, full ROM and no pedal edema Skin no rashes or lesions noted Psych mental status grossly normal Results Lab / Micro Data 03/18/23 19:15 03/18/23 19:15 Labs: Laboratory Results - last 24 hr 03/18/23 19:15: WBC 10.9, RBC 4.14 L, Hgb 12.9, Hct 39.8, MCV 96.1, MCH 31.2, MCHC 32.4, RDW Std Deviation 45.3 H, RDW Coeff of Alfie 12.8, Plt Count 242, MPV 10.1, Immature Gran % (Auto) 0.300, Neut % (Auto) 75.1 H, Lymph % (Auto) 16.9 L, [place] % (Auto) 6.7, Eos % (Auto) 0.6, Baso % (Auto) 0.4, Absolute Neuts (auto) 8.2 H, Absolute Lymphs (auto) 1.83, Nucleated RBC % 0, Sodium 134 L, Potassium 4.1, Chloride 102, Carbon Dioxide 26.0, Anion Gap 6, BUN 20 H, Creatinine 1.01, Est GFR (MDRD) Af Amer 67, Est GFR (MDRD) Non-Af 55 L, BUN/Creatinine Ratio 19.8, Glucose 108 H, Lactic Acid Cancelled, Calcium 9.4, Total Bilirubin 0.30, AST 19, ALT 20, Alkaline Phosphatase 98, Total Protein 6.6, Albumin 3.1 L, Globulin 3.5, Albumin/Globulin Ratio 0.9 03/18/23 19:25: Urine Color Yellow, Urine Clarity Cloudy, Urine pH 6.0, Ur Specific [place] 1.020, Urine Protein 100 H, Urine Glucose (UA) Normal, Urine Ketones Negative, Urine Occult Blood 150 H, Urine Nitrite Positive H, Urine Bilirubin Negative, Urine Urobilinogen Normal, Ur Leukocyte Esterase 500 H, Urine RBC 5-10 SEEN, Urine WBC >100 SEEN, Ur Squamous Epith Cells 0 SEEN, Urine Bacteria 2+, Urine Mucus 0 SEEN Assessment & Plan Assessment/Plan (1) UTI (urinary tract infection): PLAN: Plan Patient is an 87-year-old female with history of hypertension, anxiety, hyperlipidemia, chronic neck pain and multiple recent UTIs who presented to [facility] ED on 03/18/2023 with recurrent UTI symptoms. 1. Recurrent UTI Unclear etiology. May simply be failure of outpatient antibiotics. Had recent ED visit on 01/12/2023 for hypertensive urgency, found to have UTI caused by pansensitive E. coli. Completed outpatient course of Keflex but apparently had recurrent symptoms, and was then placed on ciprofloxacin by her PCP. Finished her course of ciprofloxacin on day of admission, then had recurrence of UTI symptoms earlier on evening of admission. UA shows positive nitrites, 500 leukocyte esterase, greater than 100 white blood cells, 2+ bacteria. Afebrile, vital stable, WBC count normal. Renal/bladder ultrasound showed no evidence of hydronephrosis. ? Admit as inpatient to [facility]. Given 1 dose of ceftriaxone in ED, will continue this for now. Urine culture pending, narrow antibiotics as able. Chronic medical conditions: ? Hypertension: Continue home losartan and amlodipine. ? Anxiety: Continue home Ativan as needed at night. ? Chronic neck pain: Continue home tramadol every 12 hours as needed. ? Hyperlipidemia: Continue home statin. DVT prophylaxis: Lovenox CODE STATUS: Full code, verified Expected disposition: Home, TBD Total clinical time spent by myself addressing the patient's medical issues, reviewing all the data, and collaborating with patient's care team: 55 minutes. Charges/Coding Visit Charges Inpatient E&M: 21206 Init Hosp L2
[2023-03-18] MEDS: Ceftriaxone 1 GM/50 ML BAG IV (20:49)
[2023-03-18 20:54] VITALS: BMI 27.0
[2023-03-18 20:55] VITALS: BP 140/83; PULSE 74; RESP 16; TEMP 36.5; O2SAT 95
[2023-03-18 20:57] LABS: Lactic Acid 1.1 mmol/L (0.4-1.9)
--- NOTE | 2023-03-18 21:25 | US_ITS ---
EXAM: US renal. HISTORY: Rule out hydronephrosis TECHNIQUE: US Kidney(s) complete (eg, kidneys and bladder) COMPARISON: CT abdomen pelvis January 13, 2018. LIMITATIONS: None. RIGHT KIDNEY Size: 8.9 cm in length Echogenicity: Normal. Parenchymal thickness: Cortical thickness is lower normal. Hydronephrosis: Extrarenal pelvis. No lavinia hydronephrosis. Calculi: None. Cysts/masses: None. LEFT KIDNEY Size: 9.3 cm in length Echogenicity: Normal. Parenchymal thickness: Cortical thickness is lower normal. Hydronephrosis: None. Calculi: None. Cysts/masses: None. BLADDER: Incompletely distended. Ureteral jets not visualized bilaterally. OTHER: None. CONCLUSION: No shadowing stones. No hydronephrosis. Electronically Signed: Jones Felix MD at 22:51 EDT , US/Kidney and Bladder IMPRESSION: undefined
[2023-03-18 21:59] VITALS: BMI 26.0
[2023-03-18 22:09] VITALS: BP 162/103; PULSE 64; RESP 18; TEMP 36.4; O2SAT 98
[2023-03-19 03:56] VITALS: BP 143/77; PULSE 95; RESP 16; TEMP 36.4; O2SAT 98
[2023-03-19] MEDS: traMADol 50 MG Tablet PO ×2 (07:51→20:35)
[2023-03-19] MEDS: Ondansetron ODT 4 MG Tablet PO (07:53)
[2023-03-19 09:27] VITALS: O2SAT 100
--- NOTE | 2023-03-19 09:44 | PCM.PN.HOSP ---
Reason for Visit Reason for Visit: Diagnoses Urinary tract infection, site not specified (03/18/23) Subjective Subjective Follow-up for recurrent UTI. Objective Data Objective Data Vital Signs: Vital Signs Temp Pulse Resp BP Pulse Ox O2 Del Method 97.6 F L 95 16 143/77 H 100 Room Air 03/19/23 03:56 03/19/23 03:56 03/19/23 03:56 03/19/23 03:56 03/19/23 09:27 03/19/23 09:27 Oxygen Delivery Method Room Air Weight: 166 lb 3.657 oz Body Mass Index (BMI) 26.0 Intake & Output: Intake and Output for Last 24 Hours 03/17/23 03/18/23 03/19/23 23:59 23:59 23:59 Intake Total 50 / 50 120 / 120 Balance 50 / 50 120 / 120 Lab / Micro Data 03/18/23 19:15 03/18/23 19:15 Labs: Laboratory Results - last 24 hr 03/18/23 19:15: WBC 10.9, RBC 4.14 L, Hgb 12.9, Hct 39.8, MCV 96.1, MCH 31.2, MCHC 32.4, RDW Std Deviation 45.3 H, RDW Coeff of Alfie 12.8, Plt Count 242, MPV 10.1, Immature Gran % (Auto) 0.300, Neut % (Auto) 75.1 H, Lymph % (Auto) 16.9 L, [place] % (Auto) 6.7, Eos % (Auto) 0.6, Baso % (Auto) 0.4, Absolute Neuts (auto) 8.2 H, Absolute Lymphs (auto) 1.83, Nucleated RBC % 0, Sodium 134 L, Potassium 4.1, Chloride 102, Carbon Dioxide 26.0, Anion Gap 6, BUN 20 H, Creatinine 1.01, Est GFR (MDRD) Af Amer 67, Est GFR (MDRD) Non-Af 55 L, BUN/Creatinine Ratio 19.8, Glucose 108 H, Lactic Acid Cancelled, Calcium 9.4, Total Bilirubin 0.30, AST 19, ALT 20, Alkaline Phosphatase 98, Total Protein 6.6, Albumin 3.1 L, Globulin 3.5, Albumin/Globulin Ratio 0.9 03/18/23 19:25: Urine Color Yellow, Urine Clarity Cloudy, Urine pH 6.0, Ur Specific [place] 1.020, Urine Protein 100 H, Urine Glucose (UA) Normal, Urine Ketones Negative, Urine Occult Blood 150 H, Urine Nitrite Positive H, Urine Bilirubin Negative, Urine Urobilinogen Normal, Ur Leukocyte Esterase 500 H, Urine RBC 5-10 SEEN, Urine WBC >100 SEEN, Ur Squamous Epith Cells 0 SEEN, Urine Bacteria 2+, Urine Mucus 0 SEEN 03/18/23 20:10: Lactic Acid 1.1 Radiography Diagnostic Testing: Radiology Impression Renal Ultrasound 03/18/23 21:25 IMPRESSION: undefined Physical Exam Narrative Seen and examined. History taken from the patient and her daughter near the bedside. Patient has history of recurrent UTI. She used to have recurrent UTI in 2016 and at 1 time she completed 4 months of low-dose prophylactic antibiotic. She had cystitis/burning micturition on February 24 and culture showed E. coli and was treated for Keflex 5 days. She again had UTI on March 08 with urine culture showing similar E. coli and treated for Cipro for 10 days. She again admitted with dysuria but currently dysuria has resolved with antibiotic. She had seen a urologist also about 3 years ago but denies having cystoscopy. She denies acute retention but sometimes have dribbling. She has osteoporosis with a neck size C2 fracture and wears cervical collar with nerve stimulator. Physical exam General: Alert, Oriented x3, Cooperative HEENT: Atraumatic, PERRLA, EOMI, Normocephalic Oral: No Gingival or Mucosal Lesions/ Ulcerations Neck: Cervical collar. Chronic cervical fracture. Supple, Lungs: Air entry diminished in bilateral lung bases. No crepitation/rhonchi Cardiovascular: Regular rate, Regular Rhythm, Normal S1, Normal S2, No murmurs Abdomen: Bowel Sounds Present, Soft, Non Tender, Non-Distended : Mild right CVA tenderness. No hematuria. No suprapubic tenderness. Extremities: No edema, Capillary Refill Less than 3 Seconds Skin: No rashes, No breakdown Musculoskeletal: No Tenderness to Palpation of Joints or Extremities. C-spine ROM restricted. Neurological: Cranial nerves II-XII grossly intact, DTR 2+/4. No acute focal neurological deficit. Psych/Mental Status: Normal Affect, Appropriate. Assessment & Plan Assessment/Plan (1) UTI (urinary tract infection): PLAN: Plan Patient is an 87-year-old female with history of hypertension, anxiety, hyperlipidemia, chronic neck pain and multiple recent UTIs who presented to [facility] ED on 03/18/2023 with recurrent UTI symptoms. 1. Acute on recurrent UTI: Patient is being admitted to [facility]. 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 Clearly about the history of uterovaginal prolapse. Had recent ED visit on 01/12/2023 for hypertensive urgency, found to have UTI caused by pansensitive E. coli. She used to have recurrent UTI in 2016 and at 1 time she completed 4 months of low-dose prophylactic antibiotic. She had cystitis/burning micturition on February 24 and culture showed E. coli and was treated for Keflex 5 days. She again had UTI on March 08 with urine culture showing similar E. coli and treated for Cipro for 10 days. She again admitted with dysuria but currently dysuria has resolved with antibiotic. Currently on IV ceftriaxone. Preliminary culture shows E. coli more than 100,000 colonies. I talked to urologist Dr. Alexander and kidney ultrasound reviewed. Patient does not have hydronephrosis, calculi, mass or features of pyelonephritis therefore advised outpatient visit. Chronic medical conditions: ? Hypertension: Continue home losartan and amlodipine. ? Anxiety: Continue home Ativan as needed at night. ? Chronic neck pain: Continue home tramadol every 12 hours as needed. ? Hyperlipidemia: Continue home statin. DVT prophylaxis: Lovenox CODE STATUS: Full code, verified Expected disposition: Home Charges/Coding Visit Charges Inpatient E&M: 57271 Subs Hosp L2
[2023-03-19 10:00] VITALS: BP 164/88; PULSE 93; RESP 18; TEMP 36.4; O2SAT 98
[2023-03-19] MEDS: Docusate Sodium 100 MG Capsule PO (10:18)
[2023-03-19] MEDS: amLODIPine 5 MG Tablet PO (10:25)
[2023-03-19] MEDS: Famotidine 20 MG Tablet PO (10:25)
--- NOTE | 2023-03-19 10:25 | CASEMGMT ---
LING DOMÍNGUEZ Face to Face with patient for initial transition planning/care coordination assessment. RN CATRACHITA introduced self and role at [facility]. Patient sitting up in chair with bone stimulator around neck, alert and oriented. Patient willing to participate in assessment and is able to answer all questions appropriately. Pt dtr and nurse present in room. Care providers, pharmacy, and demographics verified. Patient wishes to discharge home, denies need for home health at this time. Patient states he has no further needs or concerns at this time. CM to follow for discharge planning needs that may arise. PCP:Kar Specialists:Norma neurosurgeon; elisa Butterfield Pharmacy:[facility] Insurance:[employer] Prescription Benefit: yes LNOK:Loreto Sanford dtr Living Arrangements:Pt lives alone in a two story home with no steps to enter. Pt reports she lives on main level. Pt reports being I in ADL's and denies concerns at home. Pt does own laundry. Pt dtr gets her groceries and provides her with one meal per day. Pt states she cannot bend over with the bone stimulator but is otherwise I. Transportation: Pt drives self and denies concerns with transportation. She does not drive while wearing bone stimulator. Pt dtr transports pt if needed. DME:walking stick, walker uses at night; shower chair HHC:[facility] in the past SNF:Denies hx of Disposition Plan:Home
[2023-03-19 12:35] VITALS: PULSE 93
[2023-03-19] MEDS: Metoprolol(XL)Succ 25 MG Tablet PO (12:35)
[2023-03-19] MEDS: Enoxaparin 40 MG/0.4 ML Syringe SC (13:37)
[2023-03-19] MEDS: Acetaminophen 325 MG Tablet 650 MG PO (16:34)
[2023-03-19 16:36] VITALS: BP 161/81; PULSE 95; RESP 18; TEMP 36.9; O2SAT 98
[2023-03-19] MEDS: Losartan Potassium 25 MG Tablet PO (20:35)
[2023-03-19] MEDS: Aspirin E.C. 81 MG Tablet PO (20:35)
[2023-03-19] MEDS: Docusate Sodium 100 MG Capsule 200 MG PO (20:35)
[2023-03-19 21:00] VITALS: BP 138/70; PULSE 79; RESP 16; TEMP 36.7; O2SAT 97
[2023-03-19] MEDS: LORazepam 0.5 MG Tablet PO (21:47)
[2023-03-20 03:00] VITALS: BP 147/97; PULSE 68; RESP 16; TEMP 36.6; O2SAT 99
[2023-03-20 07:52] LABS: Absolute Lymphocyte Count 1.67 X10^3/uL (0.83-4.51); Absolute Neutrophil Count 3.6 X10^3/uL (2.0-7.7); Basophil# 0.04 X10^3/uL; Basophil% 0.7 % (0-1); Eosinophil# 0.12 X10^3/uL; Hematocrit 43.1 % (37-47); Hemoglobin 13.8 g/dL (12.0-15.0); Lymphocyte # 1.67 X10^3/ul (0.83-4.51); Lymphocyte % 28.2 % (19-41); Mean Corpuscular Hgb 30.8 pg (27.0-32.0); Mean Corpuscular Volume 96.2 fL (81-99); Mean Platelet Vol. 10.1 fl (6.2-12.0); Monocyte# 0.49 X10^3/uL; Monocyte% 8.3 % (0-10); NRBC Flagged by Analyzer 0 % (0-5); Neutrophil # 3.59 X10^3/uL (2.7-7.7); Neutrophil % 60.6 % (47-70); Platelet Count 233 K/mm3 (150-450); RBC Distribution Width CV 12.8 % (11.6-14.6); RBC Distribution Width SD 45.7 fl (35.1-43.9); Red Blood Count 4.48 M/mm3 (4.2-5.4); White Blood Count 5.9 K/mm3 (4.4-11.0)
[2023-03-20 08:20] LABS: Anion Gap 6 (5-15); BUN 18 mg/dL (7-18); Calcium,Total 9.1 mg/dL (8.5-10.1); Chloride 106 mmol/L (98-107); Creatinine, Serum 0.86 mg/dL (0.55-1.02); EST Glomerular Filtration Rate 66 mL/min (>60); Est Glom Filt Rate - Afr Amer 80 mL/min (>60); Estimated Creatinine Clearance 44.82 ml/min; Glucose 130 mg/dL (74-106); Potassium 3.7 mmol/L (3.5-5.1); Sodium Level 137 mmol/L (136-145)
[2023-03-20 08:21] VITALS: BP 140/80; PULSE 74; RESP 18; TEMP 36.6; O2SAT 97
[2023-03-20 08:27] VITALS: PULSE 74
[2023-03-20] MEDS: Metoprolol(XL)Succ 25 MG Tablet PO (08:27)
[2023-03-20] MEDS: amLODIPine 5 MG Tablet PO (08:28)
[2023-03-20] MEDS: Enoxaparin 40 MG/0.4 ML Syringe SC (08:28)
[2023-03-20] MEDS: Famotidine 20 MG Tablet PO (08:28)
[2023-03-20] MEDS: Ondansetron ODT 4 MG Tablet PO (08:29)
[2023-03-20] MEDS: Acetaminophen 325 MG Tablet 650 MG PO (08:29)
[2023-03-20] MEDS: Ensure Plus High Protein 120 ML LIQUID PO (08:33)
--- NOTE | 2023-03-20 09:10 | DCINST_ITS ---
Discharge Instructions Diet Discharge Diet: No restrictions Activity Discharge Activity: Return to Normal Activity Weight Bearing Status: Weight bearing as tolerated Dressing / Incision Call your doctor if you observe: Fever of 101 or Higher, Coldness, Increased Pain, Numbness or Tingling, Change in Color, Inability to urinate, Inability to have a bowel movement, Using more than 1 pad per hour, Shortness of breath, Dizziness, Fainting spells, Swelling in the ankles, Chest pain, Prolonged hiccupping, Increased palpitations (irregular heartbeat) and Calf discomfort Follow Up Care When: IN 2 WEEKS Test Results: Test results from this visit will be discussed in further detail at your follow- up appointment, if applicable. Discharge Plan Admission Admit Date/Time: 03/18/23 20:43 Primary Reason for Your Visit: E. coli ESBL negative UTI Attending Provider: Kirby Gatica Primary Care Provider: Phu Lakhani Consulting Providers: Ciro Dodd Instructions Additional Instructions / Restrictions: BMP after 1 week. Follow with PCP. Discharge Orders/Prescriptions Prescriptions: New sulfamethoxazole-trimethoprim [Bactrim DS] 800-160 mg tablet 1 tab PO BID 7 Days Qty: 14 0RF Continued lorazepam 0.5 MG tablet 0.5 mg PO QHS PRN PRN (Reason: Anxiety) Patient Comments: nerve pill PreserVision AREDS 1 EACH capsule 2 ea PO QHS aspirin [Torsten Low Dose Aspirin] 81 MG tablet,delayed release (DR/EC) 81 mg PO QHS Probiotic 1 TAB 1 tab PO QHS Centrum Silver Women 1 EACH tablet 1 ea PO QHS acetaminophen [Tylenol] 325 MG tablet 650 mg PO Q6H PRN PRN (Reason: pain/fever) 0RF ondansetron 4 mg tablet,disintegrating 4 mg PO Q8H PRN PRN (Reason: Nausea) Qty: 10 0RF amlodipine 5 mg tablet 5 mg PO DAILY tramadol 50 mg tablet 50 mg PO Q12H PRN (Reason: pain) Patient Comments: TAKE 1 TO 2 TABLETS BY MOUTH TWICE DAILY NEEDED FOR PAIN. DO NOT START BEFORE January docusate sodium [DOK] 100 MG capsule 200 mg PO BID famotidine [Pepcid AC] 20 mg tablet 20 mg PO DAILY metoprolol succinate 25 mg tablet extended release 24 hr 25 mg PO DAILY Held losartan 25 MG tablet 100 mg PO QHS Hold Instructions: Hold losartan while taking Bactrim DS. Patient Comments: blood pressure Referrals / Follow Up: Araceli Alexander MD [Med Staff - Active Staff] - (follow up in 2 weeks) Phu Lakhani DO [Primary Care Provider] - Disposition Disposition (needs filled in before D/C Order can be placed): Home, Self Care
[2023-03-20] MEDS: Docusate Sodium 100 MG Capsule 200 MG PO (10:31)
[2023-03-20] MEDS: traMADol 50 MG Tablet PO (10:31)
--- NOTE | 2023-03-20 11:02 | DS.PCM_ITS ---
Providers Date of Admission: 03/18/23 Date of Discharge: 03/20/23 Primary Care Physician: Dr. Phu Lakhani DO Reason For Visit: RECURRENT UTI Diagnosis Discharge Diagnosis (1) UTI (urinary tract infection): Status: Acute Code(s): N39.0 - Urinary tract infection, site not specified Qualifiers: Urinary tract infection type: acute cystitis Hematuria presence: without hematuria Qualified Code(s): N30.00 - Acute cystitis without hematuria Plan Patient is an 87-year-old female with history of hypertension, anxiety, hyperlipidemia, chronic neck pain and multiple recent UTIs who presented to [facility] ED on 03/18/2023 with recurrent UTI symptoms. 1. Acute on recurrent complicated relapsed E. coli ESBL negative UTI: Patient is being admitted to [facility]. 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 Clearly about the history of uterovaginal prolapse. Had recent ED visit on 01/12/2023 for hypertensive urgency, found to have UTI c aused by pansensitive E. coli. She used to have recurrent UTI in 2016 and at 1 time she completed 4 months of low-dose prophylactic antibiotic. She had cystitis/burning micturition on February 24 and culture showed E. coli and was treated for Keflex 5 days. She again had UTI on March 08 with urine culture showing similar E. coli and treated for Cipro for 10 days. She again admitted with dysuria but currently dysuria has resolved with antibiotic. Currently on IV ceftriaxone. Preliminary culture shows E. coli more than 100,000 colonies. I talked to urologist Dr. Alexander and kidney ultrasound reviewed. Patient does not have hydronephrosis, calculi, mass or features of pyelonephritis therefore advised outpatient visit. 03/20: Patient does not have burning micturition. Urine culture reviewed and shows ESBL E. coli sensitive to penicillin group, ceftriaxone but resistant to fluoroquinolones. By definition patient had recurrent UTI within 2 weeks with same organism therefore she meets the diagnosis of relapsed recurrent UTI and complicated UTI. Patient had ceftriaxone while in the hospital and discharged on 7 more days of Bactrim DS 1 tablet twice daily, extended course for recurrent complicated left UTI. Advised follow-up with Dr. Alexander and ID as an outpatient. Discussed the results of renal ultrasound, urine culture and course of management with patient's daughter. Chronic medical conditions: ? Hypertension: Continue home losartan and amlodipine. ? Anxiety: Continue home Ativan as needed at night. ? Chronic neck pain: Continue home tramadol every 12 hours as needed. ? Hyperlipidemia: Continue home statin. DVT prophylaxis: Lovenox CODE STATUS: Full code, verified Discharge medication reconciliation done. Discharge follow-up instructions completed. Discharge process discussed with the patient and all questions were answered to patient's satisfaction. Total time spent, exact 35 minutes on discharge meds reconciliation, examination, coordination of care with nurses and ancillary staff, review of imaging and blood test and discussion with the patient on follow-up instructions. Medications at Discharge Home Medications lorazepam 0.5 mg tablet 0.5 mg PO QHS PRN PRN Anxiety 05/09/15 losartan 25 mg tablet 100 mg PO QHS BLOOD PRESSURE 05/09/15 vitamins A,C,I-fvts-fdaean 4,296 mcg-226 mg-90 mg capsule (PreserVision AREDS) 2 ea PO QHS SUPPLEMENT 05/09/15 Probiotic 1 tab PO QHS SUPPLEMENT 01/26/17 aspirin 81 mg tablet,delayed release (Torsten Low Dose Aspirin) 81 mg PO QHS HEART HEALTH 01/26/17 iyqrxpef-eyso-iupg 8 mg-folic 400 mcg-K 50 mcg-lutein 300 mcg tablet (Centrum Silver Women) 1 ea PO QHS VITAMIN 01/26/17 acetaminophen 325 mg tablet (Tylenol) 650 mg (2 x 325 mg) PO Q6H PRN PRN pain/fever 01/29/17 ondansetron 4 mg disintegrating tablet 4 mg PO Q8H PRN PRN Nausea #10 tabs 01/12/23 amlodipine 5 mg tablet 5 mg PO DAILY BP 03/18/23 docusate sodium 100 mg capsule (DOK) 200 mg PO BID STOOL 03/18/23 famotidine 20 mg tablet (Pepcid AC) 20 mg PO DAILY STOMACH 03/18/23 tramadol 50 mg tablet 50 mg PO Q12H PRN pain 03/18/23 metoprolol succinate 25 mg tablet,extended release 24 hr 25 mg PO DAILY blood pressure 03/19/23 sulfamethoxazole 800 mg-trimethoprim 160 mg tablet (Bactrim DS) 1 tab PO BID 7 days #14 tabs 03/20/23 Physical Exam Narrative Seen and examined. No burning micturition. No fever Physical exam General: Alert, Oriented x3, Cooperative HEENT: Atraumatic, PERRLA, EOMI, Normocephalic Oral: Oral mucosa moist. No Gingival or Mucosal Lesions/ Ulcerations Neck: Cervical collar. Chronic cervical fracture. Supple, Lungs: Air entry diminished in bilateral lung bases. No crepitation/rhonchi Cardiovascular: Regular rate, Regular Rhythm, Normal S1, Normal S2, No murmurs Abdomen: Bowel Sounds Present, Soft, Non Tender, Non-Distended : Mild right CVA tenderness. No hematuria. No suprapubic tenderness. Extremities: No edema, Capillary Refill Less than 3 Seconds Skin: No rashes, No breakdown Musculoskeletal: No Tenderness to Palpation of Joints or Extremities. C-spine ROM restricted. Neurological: Cranial nerves II-XII grossly intact, DTR 2+/4. No acute focal neurological deficit. Psych/Mental Status: Normal Affect, Appropriate. Weight / BMI Weight Weight: 166 lb 3.657 oz Body Mass Index (BMI) 26.0 ABG / Lab / Microbiology Data 03/20/23 07:05 03/20/23 07:05 Laboratory: Laboratory Results - last 24 hr 03/20/23 07:05: WBC 5.9, RBC 4.48, Hgb 13.8, Hct 43.1, MCV 96.2, MCH 30.8, MCHC 32.0, RDW Std Deviation 45.7 H, RDW Coeff of Alfie 12.8, Plt Count 233, MPV 10.1, Immature Gran % (Auto) 0.200, Neut % (Auto) 60.6, Lymph % (Auto) 28.2, [place] % (Auto) 8.3, Eos % (Auto) 2.0, Baso % (Auto) 0.7, Absolute Neuts (auto) 3.6, Absolute Lymphs (auto) 1.67, Nucleated RBC % 0, Sodium 137, Potassium 3.7, Chloride 106, Carbon Dioxide 25.0, Anion Gap 6, BUN 18, Creatinine 0.86, Estim Creat Clear Calc 44.82, Est GFR (MDRD) Af Amer 80, Est GFR (MDRD) Non-Af 66, BUN/Creatinine Ratio 21.0 H, Glucose 130 H, Calcium 9.1 Microbiology: Microbiology 03/18/23 19:25 Urine, Clean Catch Urine Culture - Preliminary Presumptive E. coli D/C Instructions Discharge Diet: No restrictions Weight Bearing Status: Weight bearing as tolerated Call your doctor if you observe: Fever of 101 or Higher, Coldness, Increased Pain, Numbness or Tingling, Change in Color, Inability to urinate, Inability to have a bowel movement, Using more than 1 pad per hour, Shortness of breath, Dizziness, Fainting spells, Swelling in the ankles, Chest pain, Prolonged hiccupping, Increased palpitations (irregular heartbeat) and Calf discomfort When: IN 2 WEEKS Meaningful Use Info Meaningful Use Diagnoses (Choose all that apply): None applicable Discharge Plan Admission Admit Date/Time: 03/18/23 20:43 Primary Reason for Your Visit: E. coli ESBL negative UTI Attending Provider: Kirby Gatica Primary Care Provider: Phu Lakhani Consulting Providers: Ciro Dodd Instructions Additional Instructions / Restrictions: BMP after 1 week. Follow with PCP. Discharge Orders/Prescriptions Prescriptions: New sulfamethoxazole-trimethoprim [Bactrim DS] 800-160 mg tablet 1 tab PO BID 7 Days Qty: 14 0RF Continued lorazepam 0.5 MG tablet 0.5 mg PO QHS PRN PRN (Reason: Anxiety) Patient Comments: nerve pill PreserVision AREDS 1 EACH capsule 2 ea PO QHS aspirin [Torsten Low Dose Aspirin] 81 MG tablet,delayed release (DR/EC) 81 mg PO QHS Probiotic 1 TAB 1 tab PO QHS Centrum Silver Women 1 EACH tablet 1 ea PO QHS acetaminophen [Tylenol] 325 MG tablet 650 mg PO Q6H PRN PRN (Reason: pain/fever) 0RF ondansetron 4 mg tablet,disintegrating 4 mg PO Q8H PRN PRN (Reason: Nausea) Qty: 10 0RF amlodipine 5 mg tablet 5 mg PO DAILY tramadol 50 mg tablet 50 mg PO Q12H PRN (Reason: pain) Patient Comments: TAKE 1 TO 2 TABLETS BY MOUTH TWICE DAILY NEEDED FOR PAIN. DO NOT START BEFORE January docusate sodium [DOK] 100 MG capsule 200 mg PO BID famotidine [Pepcid AC] 20 mg tablet 20 mg PO DAILY metoprolol succinate 25 mg tablet extended release 24 hr 25 mg PO DAILY Held losartan 25 MG tablet 100 mg PO QHS Hold Instructions: Hold losartan while taking Bactrim DS. Patient Comments: blood pressure Referrals / Follow Up: Araceli Alexander MD [Med Staff - Active Staff] - (follow up in 2 weeks) Phu Lakhani DO [Primary Care Provider] - Fercho Isaacs MD [Med Staff - Active Staff] - Within 1 Month (For recurrent complicated UTI) Disposition Disposition (needs filled in before D/C Order can be placed): Home, Self Care Charges/Coding Visit Charges Inpatient E&M: 95054 Disch Hosp >30min
--- NOTE | 2023-03-20 11:36 | CASEMGMT ---
RN CM into pt room, pt ready for dc. She denies need for any therapy or nursing at home.
--- NOTE | 2023-03-20 11:46 | PHA.DC.MR.R ---
Pharmacy [place] Med Reconciliation Pharmacy Service has performed discharge medication reconciliation for this patient. The patient's discharge medication list was reviewed for discrepancies and discrepancies were resolved. Medications at Discharge Home Medications lorazepam 0.5 mg tablet 0.5 mg PO QHS PRN PRN Anxiety 05/09/15 losartan 25 mg tablet 100 mg PO QHS BLOOD PRESSURE 05/09/15 vitamins A,C,S-vpwc-igtgqr 4,296 mcg-226 mg-90 mg capsule (PreserVision AREDS) 2 ea PO QHS SUPPLEMENT 05/09/15 Probiotic 1 tab PO QHS SUPPLEMENT 01/26/17 aspirin 81 mg tablet,delayed release (Torsten Low Dose Aspirin) 81 mg PO QHS HEART HEALTH 01/26/17 inkdtjsf-vowk-gfml 8 mg-folic 400 mcg-K 50 mcg-lutein 300 mcg tablet (Centrum Silver Women) 1 ea PO QHS VITAMIN 01/26/17 acetaminophen 325 mg tablet (Tylenol) 650 mg (2 x 325 mg) PO Q6H PRN PRN pain/fever 01/29/17 ondansetron 4 mg disintegrating tablet 4 mg PO Q8H PRN PRN Nausea #10 tabs 01/12/23 amlodipine 5 mg tablet 5 mg PO DAILY BP 03/18/23 docusate sodium 100 mg capsule (DOK) 200 mg PO BID STOOL 03/18/23 famotidine 20 mg tablet (Pepcid AC) 20 mg PO DAILY STOMACH 03/18/23 tramadol 50 mg tablet 50 mg PO Q12H PRN pain 03/18/23 metoprolol succinate 25 mg tablet,extended release 24 hr 25 mg PO DAILY blood pressure 03/19/23
[2023-03-20] MEDS: 0.9% Normal Saline (250mL Bag) 250 ML 15 ML IV (13:08)
[2023-03-20] MEDS: 0.9% Saline Lock 10 ML Syringe IV (13:08)
[2023-03-20] MEDS: Ceftriaxone 1 GM/50 ML BAG IV (13:08)
[2023-03-20 13:14] VITALS: BP 129/72; PULSE 73; RESP 16; TEMP 36.7; O2SAT 97
== END 2023-03-20 14:04 | disposition home or self-care (01) | DRG 690 ==
LOC: ED 19:22 → MS3 03-19 07:15
PROVIDERS: Admitting Provider Hospitalist; Emergency Provider Emergency Medicine; PCP Student in an Organized Health Care Education/Training Program; Visit Provider Internal Medicine
DX: N30.00 Acute cystitis without hematuria (principal); Z16.12 Extended spectrum beta lactamase (ESBL) resistance; B96.20 Unspecified Escherichia coli [E. coli] as the cause of diseases classified elsewhere; I10 Essential (primary) hypertension; E78.5 Hyperlipidemia, unspecified; M54.2 Cervicalgia; G89.29 Other chronic pain; Z79.2 Long term (current) use of antibiotics; Z96.82 Presence of neurostimulator; Z79.82 Long term (current) use of aspirin; Z79.891 Long term (current) use of opiate analgesic; Z79.899 Other long term (current) drug therapy; Z23 Encounter for immunization; F41.9 Anxiety disorder, unspecified
CPT/HCPCS: 36415; 76770; 80048; 80053; 81001; 83605; 85025; 87086; 87088; 87186; 96365; 96366; 96372; 97802; 99221; 99285; J7050; P9612; A4216; G0378